=== PATIENT | female | born 1950 | race Asian ===

== ENCOUNTER 2018-02-03 17:09 | Emergency (ER) | payer MEDICARE, OTHER ==
[2018-02-03 19:59] LABS: ADD MAN DIFF? NO
[2018-02-03 20:15] LABS: ADD UMIC YES; UR ASCORBIC ACID NEGATIVE (NEGATIVE); UR BILIRUBIN (Dip) NEGATIVE (NEGATIVE); UR BLOOD (Dip) NEGATIVE (NEGATIVE); UR CLARITY CLEAR (CLEAR); UR COLOR STRAW (YELLOW); UR GLUCOSE (Dip) 3+ mg/dL (NEGATIVE); UR KETONES (Dip) NEGATIVE (NEGATIVE); UR LEUKOCYTE ESTERASE (Dip) 3+ Leu/ul (NEGATIVE); UR NITRITE (Dip) NEGATIVE (NEGATIVE); UR RBC 2 /HPF (0-5); UR SPECIFIC GRAVITY (Dip) 1.017 (1.003-1.030); UR SQUAMOUS EPITHELIAL CELL FEW /HPF (FEW); UR TOTAL PROTEIN (Dip) 1+ mg/dl (NEGATIVE); UR UROBILINOGEN (Dip) NEGATIVE (NEGATIVE); UR WBC 69 /HPF (0-5)
[2018-02-03] MEDS: SOD CHLORIDE 0.9% 2,000 ML IV (20:22)
[2018-02-03] MEDS: LACTATED RINGER'S 1,000 ML IV (20:22)
[2018-02-03 20:24] LABS: WHITE BLOOD COUNT 6.9 10^3/ul (4.8-10.8)
[2018-02-03 20:24] LABS: HEMATOCRIT 36.1 % (37.0-47.0); HEMOGLOBIN 11.9 g/dl (12.0-16.0)
[2018-02-03 20:25] LABS: ANION GAP 18 (8-16); BASOPHILS % 0.6 % (0.0-2.0); BLOOD UREA NITROGEN 36 mg/dl (7-20); CALCIUM 9.7 mg/dl (8.4-10.2); CARBON DIOXIDE 28 mmol/L (21-31); CHLORIDE 99 mmol/L (97-110); CREATININE 1.21 mg/dl (0.44-1.00); EOSINOPHILS # 0.2 10^3/ul (0.0-0.5); EOSINOPHILS % 2.6 % (0.0-7.0); LYMPHOCYTES # 2.6 10^3/ul (0.8-2.9); LYMPHOCYTES % 38.4 % (15.0-51.0); MEAN CORPUSCULAR HEMOGLOBIN 29.8 pg (29.0-33.0); MEAN CORPUSCULAR VOLUME 90.3 fl (82.0-101.0); MEAN PLATELET VOLUME 11.8 fl (7.4-10.4); MONOCYTE # 0.5 10^3/ul (0.3-0.9); MONOCYTES % 7.2 % (0.0-11.0); NEUTROPHIL # 3.5 10^3/ul (1.6-7.5); NEUTROPHILS % 51.1 % (39.0-77.0); PLATELET COUNT 229 10^3/UL (140-415); RED CELL DISTRIBUTION WIDTH 13.2 % (11.5-14.5); SODIUM 140 mmol/L (135-144)
[2018-02-03 20:42] LABS: LACTIC ACID 2.9 mmol/L (0.5-2.0)
[2018-02-03 20:43] LABS: GLUCOSE 461 mg/dl (70-220)
[2018-02-03] MEDS: INSULIN LISPRO 100 UNIT/ML VIAL SC (21:03)
[2018-02-03] MEDS: CEPHALEXIN 500 MG CAP PO (21:07)
[2018-02-03 21:54] LABS: LACTIC ACID 3.7 mmol/L (0.5-2.0)
== END 2018-02-03 22:40 | disposition home or self-care (01) ==
LOC: E/R 17:09
DX: N30.00 Acute cystitis without hematuria (principal); E11.65 Type 2 diabetes mellitus with hyperglycemia; Z79.4 Long term (current) use of insulin
CPT/HCPCS: 36415; 80048; 81001; 82962; 83605; 85025; 96372; 99284-25